=== PATIENT | male | born 1980 | race Two or more races ===

== ENCOUNTER 2018-02-02 14:41 | Emergency (ER) | payer SELFPAY ==
[~2018-02-02] VITALS: Ht 165.1 cm; Wt 103.1 kg
[2018-02-02 15:20] VITALS: BP 147/85
[2018-02-02] MEDS ORDERED: DEXAMETHASONE SOD PHOS 20 MG/5 ML VIAL. PO ONE (15:30)
[2018-02-02] MEDS ORDERED: PRED50TA PO (15:57)
--- NOTE | 2018-02-02 15:58 | PHYS DOC ---
Past Medical History Past Medical History: No Pertinent History Past Surgical History: No Surgical History Alcohol Use: Occasionally Drug Use: None Adult General Chief Complaint Chief Complaint: SKIN RASH/ABSCESS HPI HPI Patient is a 37 year old male who reports a rash all over his body for the last 3 days. He denies any new medications, foods, detergents, environmental exposures. States he feels itchy all over and then the skin is burning. He denies any difficulty swallowing, wheezing, or shortness of breath. States he's been taking Benadryl 4 times a day since yesterday with little to no relief. Denies any medical or surgical history. States he is not allergic to any medications. Review of Systems Review of Systems Constitutional: Denies fever or chills [] Eyes: Denies change in visual acuity, redness, or eye pain [] HENT: Denies nasal congestion or sore throat [] Respiratory: Denies cough wheezing, or shortness of breath [] Cardiovascular: Denies chest pain Integument: Reports itchy, burning rash all over x 3 days Neurologic: Denies headache, focal weakness or sensory changes [] Current Medications Current Medications Current Medications Medications (Trade) Dose Ordered Sig/Mahendra Start Time Stop Time Status Last Admin Dose Admin Dexamethasone Sodium Phosphate (Decadron) 10 mg 1X ONCE 02/02/18 15:30 02/02/18 15:31 DC 02/02/18 15:52 10 MG Allergies Allergies Allergies Coded Allergies Type Severity Reaction Last Updated Verified No Known Drug Allergies 02/02/18 No Physical Exam Physical Exam Constitutional: Well developed, well nourished, no acute distress, non-toxic appearance, obese. [] HENT: Normocephalic, atraumatic, bilateral external ears normal, oropharynx moist, posterior pharynx normal, no oral exudates, nose normal. [] Eyes: PERRLA, conjunctiva normal, no discharge. [] Neck: Normal range of motion, no tenderness, supple, no stridor. [] Cardiovascular:Heart rate regular rhythm, no murmur [] Lungs & Thorax: Bilateral breath sounds clear to auscultation [] Skin: Warm, dry, generalized urticaria on face, trunk, back, and extremities x4 Extremities: No tenderness, no cyanosis, ROM intact, no edema. [] Neurologic: Alert and oriented X 3, normal motor function, normal sensory function, no focal deficits noted. [] Psychologic: Affect normal, judgement normal, mood normal. [] Current Patient Data Vital Signs Vital Signs Date Time Temp Pulse Resp B/P (MAP) Pulse Ox O2 Delivery O2 Flow Rate FiO2 02/02/18 15:20 98.1 78 16 147/85 (105) 100 Room Air 98.1 EKG EKG [] Radiology/Procedures Radiology/Procedures [] Course & Med Decision Making Course & Med Decision Making Pertinent Labs and Imaging studies reviewed. (See chart for details) Acute urticaria. 10 mg of by mouth Decadron given in the emergency room. 5 day burst of prednisone written, instructed patient to begin prednisone tomorrow. Continue Benadryl 4 times a day. Follow-up with your primary care doctor in 1-2 days.Patient verbalized an understanding of home care, medications, follow-up, and return to ED instructions and was in agreement with the plan of care. [] Staff Physician Addendum: I was working in the ER during the course of this patient's visit. I was available for consultation as needed, but I was not directly involved in the care of this patient. Dragon Disclaimer Dragon Disclaimer This electronic medical record was generated, in whole or in part, using a voice recognition dictation system. Departure Departure Impression: Primary Impression: Acute urticaria Disposition: 01 HOME, SELF-CARE Condition: STABLE Referrals: NO PCP (PCP) Patient Instructions: Hives, [id number] Additional Instructions: Wash all of your bedding and clothing. Take Benadryl 4 times a day as needed. Fill the prescription and use it as directed, starting tomorrow. Follow-up with your primary care doctor in 1-2 days. Return to the ER if your symptoms worsen. Scripts Prednisone (PREDNISONE) 50 Mg Tablet 1 TAB PO DAILY for 5 Days, #5 TAB 0 Refills start this medication on 02/03/18 Prov: KLARISSA KRAMER APRN 02/02/18 KLARISSA KRAMER APRN Feb 02, 2018 15:58 ION FORBES MD Feb 04, 2018 20:38
== END 2018-02-02 16:06 | disposition home or self-care (01) ==
LOC: ER 14:41
DX: L50.9 Urticaria, unspecified (principal)
CPT/HCPCS: 99283; J1100